=== PATIENT | female | born 1985 ===

== ENCOUNTER 2016-03-27 12:32 | Emergency (ER) | payer OTHER ==
[2016-03-27 12:55] VITALS: RESP 20; TEMP 98.3
[2016-03-27 14:05] VITALS: BP 126/68; PULSE 91; O2SAT 96
== END 2016-03-27 13:58 | disposition home or self-care (01) | DRG 195 ==
LOC: ED 12:32
DX: J09.X2 Influenza due to identified novel influenza A virus with other respiratory manifestations (principal)
CPT/HCPCS: 87430; 87804; 99282; 99283

== ENCOUNTER 2016-11-08 14:49 | Emergency (ER) | payer SELFPAY ==
[2016-11-08 15:21] VITALS: RESP 20
[2016-11-08] MEDS ORDERED: SODIUM CHLORIDE 0.9% 1000ML 1,000 ML IV ONE (15:22)
[2016-11-08] MEDS ORDERED: KETOROLAC TROMETHAMINE 30 MG/ML SOL IV ONE (15:23)
[2016-11-08 15:33] LABS: BASOPHILS % (AUTO) 1 % (0-3); EOSINOPHILS % (AUTO) 1 % (0-9); HEMATOCRIT 42 % (35-47); MEAN CORPUSCULAR HGB CONC 33.9 gm/dl (32.0-36.0); MEAN CORPUSCULAR VOLUME 95 fL (81-99); MONOCYTES % (AUTO) 8.2 % (0-12); NEUTROPHILS % (AUTO) 63.1 % (37-80)
[2016-11-08 15:41] LABS: CALCIUM 8.6 mg/dl (8.5-10.1)
[2016-11-08] MEDS ORDERED: KETOROLAC TROMETHAMINE 30 MG/ML SOL ONE (15:41)
[2016-11-08 16:49] VITALS: BP 120/75; PULSE 68; TEMP 98; O2SAT 99
== END 2016-11-08 17:07 | disposition home or self-care (01) | DRG 948 ==
LOC: ED 14:49
DX: R53.83 Other fatigue (principal); G43.909 Migraine, unspecified, not intractable, without status migrainosus; R25.2 Cramp and spasm
CPT/HCPCS: 36415; 80048; 85025; 99283; J1885

== ENCOUNTER 2017-03-07 10:55 | Emergency (ER) | payer SELFPAY ==
[2017-03-07] MEDS ORDERED: KETOROLAC TROMETHAMINE 30 MG/ML SOL IM ONE (11:27)
[2017-03-07] MEDS ORDERED: APAP/HYDROCODONE 325/5 TAB PO ONE (11:27)
[2017-03-07] MEDS ORDERED: CYCLOBENZAPRINE 10 MG TAB PO ONE (11:27)
[2017-03-07] MEDS ORDERED: KETOROLAC TROMETHAMINE 30 MG/ML SOL ONE (11:42)
[2017-03-07] MEDS ORDERED: CYCLOBENZAPRINE 10 MG TAB ONE (11:42)
[2017-03-07] MEDS ORDERED: APAP/HYDROCODONE 325/5 TAB ONE (11:42)
[2017-03-07 12:30] VITALS: RESP 16
[2017-03-07 13:27] VITALS: BP 116/45; PULSE 69; TEMP 97.6; O2SAT 99
== END 2017-03-07 13:24 | disposition home or self-care (01) | DRG 563 ==
LOC: ED 10:55
DX: S46.911A Strain of unspecified muscle, fascia and tendon at shoulder and upper arm level, right arm, initial encounter (principal); J06.9 Acute upper respiratory infection, unspecified; S76.911A Strain of unspecified muscles, fascia and tendons at thigh level, right thigh, initial encounter; X50.0XXA Overexertion from strenuous movement or load, initial encounter
CPT/HCPCS: 99283; J1885

== ENCOUNTER 2017-04-30 19:21 | Emergency (ER) | payer SELFPAY ==
[2017-04-30] MEDS ORDERED: KETOROLAC TROMETHAMINE 30 MG/ML SOL IM ONE (20:59)
[2017-04-30] MEDS ORDERED: APAP/OXYCODONE 325/5 TAB PO ONE (21:00)
[2017-04-30] MEDS ORDERED: KETOROLAC TROMETHAMINE 30 MG/ML SOL ONE (21:02)
[2017-04-30] MEDS ORDERED: APAP/OXYCODONE 325/5 TAB ONE (21:02)
[2017-05-01 00:46] VITALS: RESP 18; TEMP 98.2
[2017-05-01 07:37] VITALS: BP 116/47; PULSE 83; O2SAT 92
== END 2017-04-30 22:24 | disposition home or self-care (01) | DRG 556 ==
LOC: ED 19:21
DX: M25.511 Pain in right shoulder (principal)
CPT/HCPCS: 73030; 99283; J1885; A9270-GY

== ENCOUNTER 2017-09-18 19:55 | Emergency (ER) | payer OTHER ==
[2017-09-18 20:22] VITALS: RESP 16; TEMP 97.5; O2SAT 100
[2017-09-18] MEDS ORDERED: KETOROLAC TROMETHAMINE 30 MG/ML SOL IM ONE (20:22)
[2017-09-18] MEDS ORDERED: KETOROLAC TROMETHAMINE 30 MG/ML SOL ONE (20:23)
[2017-09-18 20:26] VITALS: BP 126/86; PULSE 68
== END 2017-09-18 20:44 | disposition home or self-care (01) | DRG 563 ==
LOC: ED 19:55
DX: S46.911A Strain of unspecified muscle, fascia and tendon at shoulder and upper arm level, right arm, initial encounter (principal)
CPT/HCPCS: 96372; 99282; J1885

== ENCOUNTER 2018-01-17 17:58 | Emergency (ER) | payer SELFPAY ==
[2018-01-17] MEDS ORDERED: SUMATRIPTAN SUCCINATE 6 MG/0.5 ML SOL SC ONE ×2 (18:34→18:40)
[2018-01-17] MEDS ORDERED: METOCLOPRAMIDE HYDROCHLORIDE 5 MG/ML SOL IV ONE (18:34)
[2018-01-17] MEDS ORDERED: KETOROLAC TROMETHAMINE 30 MG/ML SOL IV ONE (18:35)
[2018-01-17] MEDS ORDERED: METOCLOPRAMIDE HYDROCHLORIDE 5 MG/ML SOL ONE (18:40)
[2018-01-17] MEDS ORDERED: KETOROLAC TROMETHAMINE 30 MG/ML SOL ONE (18:40)
[2018-01-17 19:15] VITALS: TEMP 96.8
[2018-01-17 19:43] VITALS: BP 108/65; PULSE 73; RESP 18; O2SAT 95
== END 2018-01-17 19:36 | disposition home or self-care (01) | DRG 103 ==
LOC: ED 17:58
DX: G43.019 Migraine without aura, intractable, without status migrainosus (principal)
CPT/HCPCS: 96372; 96374; 96375; 99283; 99284; J1885; J2765; J3030

== ENCOUNTER 2018-01-31 17:37 | Emergency (ER) | payer SELFPAY ==
[2018-01-31 17:56] VITALS: BP 112/59; PULSE 76; RESP 16; TEMP 96.5; O2SAT 99
== END 2018-01-31 18:19 | disposition home or self-care (01) | DRG 605 ==
LOC: ED 17:37
DX: S80.01XA Contusion of right knee, initial encounter (principal)
CPT/HCPCS: 99282

== ENCOUNTER 2018-04-21 18:59 | Emergency (ER) | payer OTHER ==
[2018-04-21 19:35] VITALS: RESP 18; TEMP 97.2
[2018-04-21] MEDS ORDERED: KETOROLAC TROMETHAMINE 30 MG/ML SOL IM ONE (19:54)
[2018-04-21] MEDS ORDERED: KETOROLAC TROMETHAMINE 30 MG/ML SOL ONE (20:04)
[2018-04-21 20:49] VITALS: BP 112/59; PULSE 64; O2SAT 100
== END 2018-04-21 20:21 | disposition home or self-care (01) | DRG 149 ==
LOC: ED 18:59
DX: H81.10 Benign paroxysmal vertigo, unspecified ear (principal); R51 Headache
CPT/HCPCS: 96372; 99282; J1885

== ENCOUNTER 2018-05-30 11:47 | Emergency (ER) | payer OTHER ==
[2018-05-30 11:47] VITALS: O2SAT 100
[2018-05-30 11:58] VITALS: BP 134/75; PULSE 76; RESP 20; TEMP 97
[2018-05-30] MEDS ORDERED: ACETAMINOPHEN 500 MG 500 MG TAB PO ONE (12:53)
[2018-05-30] MEDS ORDERED: ACETAMINOPHEN 500 MG 500 MG TAB ONE (12:54)
== END 2018-05-30 13:11 | disposition home or self-care (01) | DRG 563 ==
LOC: ED 11:47
DX: S93.402A Sprain of unspecified ligament of left ankle, initial encounter (principal)
CPT/HCPCS: 73610; 99282; 99283; E0114